=== PATIENT | male | born 1975 | race Hispanic/Latino ===

== ENCOUNTER 2023-07-06 03:53 | Emergency (ER) | payer SELFPAY ==
[2023-07-06] MEDS ORDERED: Ketorolac Tromethamine 30 MG (1 mL) VIAL ONE ×2 (04:24→05:33)
[2023-07-06] MEDS ORDERED: Morphine 4 MG/ML VIAL ONE (04:24)
[2023-07-06] MEDS ORDERED: Ondansetron PF 4 MG/2 ML Vial ONE (04:24)
[2023-07-06 04:29] LABS: #Basophils 0.07 10x3/uL (0.0-0.2); %Basophils 0.8 % (0.0-1.0); %Eosinophils 1.2 % (0.0-10.0); %Lymphocytes 24.6 % (21.0-51.0); %Monocytes 7.4 % (0.0-10.0); %Neutrophils 65.7 % (42.0-75.0); Hematocrit 47.9 % (42.0-52.0); Hemoglobin 16.8 g/dL (14.0-18.0); Mean Corpuscular HGB CONC 35.1 g/dL (32.0-36.0); Mean Corpuscular Hemoglobin 29.5 pg (27.0-31.0); Mean Platelet Volume 9.5 fL (7.4-10.4); Platelet Count 231 10x3/uL (130-400)
[2023-07-06 04:36] LABS: Bilirubin Negative (Negative); Blood, Urine Large (Negative); Glucose, Urine (Dipstick) Negative (Negative); Ketone, Urine Negative (Negative); Leukocyte Negative (Negative); Nitrite Negative (Negative); Protein, Urine (Dipstick) Trace mg/dL (Neg-Trace)
[2023-07-06 04:37] LABS: Bacteria/HPF None Seen HPF (None Seen); CAUTI Indications for Culture Pelvic or flank pain; RBC/HPF Greater than 50 HPF (0-3); Squamous Epithelial 0-3 HPF (0-3); WBC/HPF 0-3 HPF (0-3)
[2023-07-06 04:38] LABS: Clarity Clear (Clear)
[2023-07-06 04:39] LABS: Specific Gravity, Urine 1.033 (1.002-1.036)
[2023-07-06 04:40] LABS: Urine Culture Reflex No No
[2023-07-06 04:48] LABS: ALT (SGPT) 21 U/L (8-55); AST (SGOT) 23 U/L (5-34); Albumin 4.2 g/dL (3.5-5.0); Alkaline Phosphatase 109 U/L (40-110); Anion Gap 15 mmol/L (10-20); BUN (Urea Nitrogen) 18 mg/dL (8.9-20.6); Bilirubin, Total 0.6 mg/dL (0.2-1.2); Calc. Creatinine Clearance 0 mL/min (70-130); Calcium 9.5 mg/dL (7.8-10.44); Carbon Dioxide 23 mmol/L (22-29); Chloride 107 mmol/L (98-107); Estimated GFR 69; Globulin 3.4 g/dL (2.4-3.5); Glucose 121 mg/dL (70-105); Lipase 34 U/L (8-78); Potassium 3.7 mmol/L (3.5-5.1); Protein, Total 7.6 g/dL (6.0-8.3); Sodium 141 mmol/L (136-145)
[2023-07-06] MEDS ORDERED: fentaNYL 50 mcg/mL 1 mL Vial ONE (05:32)
[2023-07-06] MEDS ORDERED: HYDROcodone/Acetaminophen 10/325 mg Tablet ONE (07:18)
[2023-07-06] MEDS ORDERED: Promethazine HCl 12.5 MG in Sodium Chloride 0.9% 50 ML IVPB SCH (07:45)
== END 2023-07-06 08:20 | disposition home or self-care (01) ==
LOC: ERS 03:53
DX: N13.2 Hydronephrosis with renal and ureteral calculous obstruction (principal); Z55.6 Problems related to health literacy
CPT/HCPCS: 74176; 80053; 81001; 83690; 85025; 96374; 96375; 96376; J1885; J2270; J2405; J2550; J3010